=== PATIENT | female | born 1965 | race Two or more races ===

== ENCOUNTER 2024-11-09 06:07 | Inpatient (IN) | payer MEDICAID ==
[~2024-11-09] VITALS: Ht 157.5 cm; Wt 87.0 kg
[~2024-11-09 06:07] MED LIST: GLIP5TAB21 PO; INSUINJ37 SC; LISI20TA56 PO; OMEP20TA PO; SEMA2INJ3 SC; SIMV20TA20 PO
[2024-11-09] MEDS: ACETAMINOPHEN IV 100 ML IV ONE (06:33)
[2024-11-09] MEDS: ceFAZolin 2 GM/D5W50ml 50 ML IV ONE (06:33)
[2024-11-09] MEDS: CELECOXIB 100 MG CAP PO ONE (07:00)
[2024-11-09] MEDS: PREGABALIN CAPSULE 75 MG CAP PO ONE (07:00)
[2024-11-09] MEDS: ACETAMINOPHEN IV 1000 MG/100ML (10MG/ML) IV ONE (07:00)
[2024-11-09] MEDS: BUPIVACAINE HCL 50 ML ONE (07:13)
[2024-11-09] MEDS ORDERED: fentaNYL CITRATE 100 MCG/2 ML VL ONE (07:13)
[2024-11-09] MEDS: CEFEPIME 1GM/ 50ML 50 ML IV ONE (07:13)
[2024-11-09] MEDS ORDERED: MIDAZOLAM HCL 2MG/2ML 2ml VIAL (1mg/ml) ONE (07:13)
[2024-11-09] MEDS: TRANEXAMIC ACID 20 ML ONE (07:16)
[2024-11-09] MEDS ORDERED: PROPOFOL 10 MG/ML 20 ML IV ONE (07:28)
[2024-11-09] MEDS ORDERED: ONDANSETRON HCL 4 MG/2 ML VIAL ONE (07:29)
[2024-11-09] MEDS ORDERED: LIDOCAINE 1% INJ PF 5ML AMP ONE (07:29)
[2024-11-09] MEDS ORDERED: DEXTROSE (50%) 50ML SYRG IV PRN (07:30)
[2024-11-09] MEDS ORDERED: ONDANSETRON HCL 4 MG/2 ML VIAL IV PRN (07:30)
[2024-11-09] MEDS ORDERED: MORPHINE SULFATE INJ 2 MG/ml SYRG IV PRN (07:30)
[2024-11-09] MEDS: LACTATED RINGER'S 1,000 ML IV SCH (07:30)
[2024-11-09] MEDS: ceFAZolin 1GM/50ML 50 ML IV SCH (07:30)
[2024-11-09] MEDS ORDERED: NITROGLYCERIN 0.4 MG SL TAB SL PRN (07:30)
[2024-11-09] MEDS ORDERED: METOCLOPRAMIDE HCL 5MG/ml INJ 2ml VIAL ONE (07:46)
[2024-11-09] MEDS ORDERED: MORPHINE SULF PF 5 MG/10 ML VIAL ONE (07:48)
[2024-11-09] MEDS ORDERED: LIDOCAINE W/ EPINEPHRINE 1% 20ML VIAL ONE (07:52)
[2024-11-09] MEDS: KETOROLAC TROMETH 30 MG/ML 1ML VIAL ONE (08:14)
[2024-11-09] MEDS: BUPIVACAINE 0.25% INJ 50ML VIAL ONE (08:14)
[2024-11-09] MEDS: VANCOMYCIN HCL 1000 MG VL ONE (08:16)
--- NOTE | 2024-11-09 09:24 | DVHOP2 ---
Discharge Orders Discharge Orders DISCHARGE WHEN CRITERIA MET DISCHARGE WHEN CRITERIA MET. Operative Rep- Outpatient Operative Report PRE-OP DIAGNOSIS: Left knee osteoarthritis POST-OP DIAGNOSIS: Same [place] protocol followed: Yes ESTIMATED BLOOD LOSS: 25 cc PROCEDURE: Left total knee arthroplasty Computer navigation left total knee arthroplasty SURGEON/ELECTRIC DETECTOR OPERATOR: Tarun WEAVER ANESTHESIA: Ruel CAMPBELL ANESTHESIOLOGIST: SHANNAN INFORMED CONSENT: Informed Consent: Discussed all inherent risks, complications, and alternatives treatments with the patient. Patient has agreed to proceed with the procedure. I have reviewed all pre-operative assessments including Labs, EKGs, and radiographic images that has been performed. Patient is an appropriate candidate for the outpatient surgical center procedure. The patient was educated on the risks and benefits of surgical and nonsurgical treatment of the left lower extremity she does understand that she has medial sided osteoarthritis with a kl 3 Kale for changes along with I see RS scale 3 Collins 4 changes on the medial femoral condyle the patient understands the risks associated with having a total knee arthroplasty of the left lower extremity she the patient is educated on the risks of the [facility] total knee arthroplasty of the based on these parameters the patient was educated on the risks and benefits of surgical and nonsurgical treatment of the left lower extremity and opted for surgical treatment of the left lower extremity The patient is seen in the preoperative holding area of the left lower extremity was marked the patient was brought to operative suite general anesthesia was then induced and also to hospital protocol left lower extremity was prepped and draped in the standard fashion Ancef was given for infection prophylaxis TXA was given for bleeding prophylaxis left lower extremity was then prepped and draped in the standard fashion The patient is seen in the preoperative holding of the left lower extremity was marked of Ancef was given for infection prophylaxis once I was under then incision made through skin subcu tissue muscle fascia down to the VMO quad junction and medial parapatellar arthrotomy was then completed the fat pad was created off the anterior aspect of the patella once I was then done the ACL PCL and anterior horn of the medial and lateral meniscus were transected the tibial proximal tibia was then exposed once it was exposed the appropriate manner computer navigation was then brought onto the field with a 2 degree slope to make up for the CR femoral component to closed down the flexion gap in the appropriate manner of the proximal tibia cut was then completed once it was then completed the distal femur cardiac completed with 3 of flexion with a neutral, hematocrit mechanical axis computer navigation with flexion extension internal and external rotation of the femur once I was then completed the tip of the femoral sizing block was noted. The size 7 5 sizing block formalin cutting block was then noted once I was then noted the medial and lateral meniscus were carefully removed along with the ACL and PCL once I was then transected and 10 mm spacer block was noted to be balanced in flexion and extension slightly tight on the medial side therefore the pancreas of the MCL was then completed in the appropriate manner once it was then done on the the size tibial placed presents punched and kicked along the medial 1/3 tibial tubercle was 10 mm MC poly along with a size 7 narrow femoral component was punched and cable patellar nephrectomy was completed once I was then completed the knees irrigated customized saline and then sized the femoral component tibial base plate a cemented and punched in the placed along with a size 7 narrow component followed by 10 mm MC poly on closed in extension with the irrigation with the vancomycin powder followed by suture followed by 0 Vicryl followed by 2-0 Vicryl followed by erika followed by Prineo followed by an on the Mepilex dressing. The patient will be weight-bearing as tolerated on the left lower extremity PT OT out of bed daily follow up in 2 weeks' time. TARUN MALONE MD Nov 09, 2024 09:24
[2024-11-09] MEDS: ACCU-CHEK COMFORT CURVE STRIP VI SCH (09:28)
[2024-11-09] MEDS ORDERED: hydrALAZINE HCL 20 MG/ML VL IV PRN (09:30)
[2024-11-09] MEDS: METOCLOPRAMIDE HCL 5MG/ml INJ 2ml VIAL IV ONE (09:30)
[2024-11-09] MEDS: ONDANSETRON HCL 4 MG/2 ML VIAL IV ONE (09:30)
[2024-11-09] MEDS: KETOROLAC TROMETH 30 MG/ML 1ML VIAL IV ONE (09:30)
[2024-11-09] MEDS ORDERED: HYDROmorphone HCL 2 MG/ML VL/or syr IV PRN (09:30)
[2024-11-09] MEDS ORDERED: PATIENTS OWN MEDICATION (Omeprazole (Gnp Omeprazole) 20 MG) PO SCH (10:00)
[2024-11-09] MEDS: CEFEPIME 1GM/ 50ML 50 ML IV SCH (10:00)
[2024-11-09] MEDS: PANTOPRAZOLE 40 MG TAB PO SCH (10:00)
--- NOTE | 2024-11-09 10:05 | DVH ---
CLINICAL INDICATION: Pain; S/P SURGERY TECHNIQUE: 1 radiographic views of the left knee were obtained. Comparison: None FINDINGS/IMPRESSION: Postsurgical changes from left knee arthroplasty.
[2024-11-09] MEDS: InsuLIN REG 1unit/0.01ml Soln (100units/ml) SC SCH ×2 (11:30→21:25)
--- NOTE | 2024-11-09 14:22 | DVHHP2 ---
Review of Systems Allergies: Coded Allergies: NO KNOWN ALLERGIES (Unverified , 11/06/24) Medications Current Medications Medications Dose Ordered Sig/Chema Route Start Time Stop Time Status Last Admin Dose Admin Lisinopril 10 mg QPM PO 11/09/24 18:00 Patient Own Medication 20 mg DAILY PO 11/09/24 10:00 UNV Patient Own Medication 20 mg QPM PO 11/09/24 18:00 UNV Lactated Ringer's 1,000 ml @ 100 mls/hr Q10H IV 11/09/24 07:30 Sodium Chloride 10 ml Q8HR IV 11/09/24 14:00 Cefazolin Sodium 50 ml @ 50 mls/hr Q6H IV 11/09/24 07:30 11/09/24 20:29 11/09/24 13:03 50 MLS/HR Acetaminophen/ Hydrocodone Bitart 1 tab Q4HP PRN PO 11/09/24 07:30 Hydromorphone HCl 1 mg Q2HP PRN IV 11/09/24 07:30 Oxycodone HCl 10 mg Q12HR PO 11/09/24 10:00 Ondansetron HCl 4 mg Q6HP PRN IV 11/09/24 07:30 Docusate Sodium 100 mg Q12HR PO 11/09/24 10:00 Nitroglycerin 0.4 mg Q5MINP PRN SL 11/09/24 07:30 Morphine Sulfate 2 mg Q30M PRN IV 11/09/24 07:30 Diagnostic Test (Pha) 1 strip ACHS 11/09/24 11:30 11/09/24 09:28 1 STRIP Insulin Human Regular HS SC 11/09/24 22:00 Insulin Human Regular AC SC 11/09/24 11:30 Dextrose 50 ml UD PRN IV 11/09/24 07:30 Cefepime HCl 50 ml @ 12.5 mls/hr DAILY IV 11/09/24 10:00 Aspirin 81 mg BID PO 11/10/24 10:00 Atorvastatin Calcium 10 mg HS PO 11/09/24 22:00 Pantoprazole Sodium 40 mg DAILY PO 11/09/24 10:00 Exam Vital Signs Vital Signs Date Time Temp Pulse Resp B/P (MAP) Pulse Ox O2 Delivery O2 Flow Rate FiO2 11/09/24 11:25 Room Air 11/09/24 11:20 65 14 133/76 (95) 98 11/09/24 09:30 2.0 11/09/24 09:23 98.1 98.1 Labs/Xrays Labs Test 11/09/24 09:28 Range/Units POC Glucose 113 H 70-106 mg/dl Assessment/Plan Assessment/Plan see dictated note Plan discussed with: Patient My Orders Orders - DESHAUN SALAZAR MD Procedure Category Date Status Time Complete Blood Count LAB 11/10/24 Verified 06:00 Comprehensive LAB 11/10/24 Verified Metabolic Panel 06:00 Hemoglobin A1c LAB 11/10/24 Verified 06:00 Urinalysis LAB 11/09/24 Uncollected 14:19 Date of Service: Nov 09, 2024 Billing Provider: DESHAUN SALAZAR MD Common Visit Codes: [id number] INP/OBS CARE (HIGH) Secondary Visit Codes: [id number] CARE PLAN 30 MINUTES DESHAUN SALAZAR MD Nov 09, 2024 14:22
--- NOTE | 2024-11-09 14:35 | DVHHP ---
ADMIT DATE: 11/09/2024 HISTORY OF PRESENT ILLNESS: The patient is a 59-year-old lady who is admitted after she underwent surgery on the left knee for DJD of the knee. The patient at this time denies any significant pain. No chest pain. No shortness of breath. No nausea or vomiting. REVIEW OF SYSTEMS: Review of rest of the systems otherwise currently negative. PAST MEDICAL HISTORY: Significant for diabetes, hypertension, and hyperlipidemia. MEDICATIONS: She takes insulin, lisinopril, glipizide, Ozempic, and simvastatin. ALLERGIES: No known drug allergies. SOCIAL HISTORY: No smoking or alcohol. Lives at home with her daughter. FAMILY HISTORY: Negative. PHYSICAL EXAMINATION: GENERAL: The patient is awake and alert. VITAL SIGNS: Temperature of 98.1, pulse of 60 per minute, blood pressure 115/65. SHEENT: Unremarkable. NECK: No JVD. No pedal edema. LUNGS: Equal bilaterally. No added sounds. CARDIOVASCULAR: S1 and S2 are regular. No murmurs. ABDOMEN: Soft. There is no organomegaly. NEUROLOGIC: Nonfocal. MUSCULOSKELETAL: The left knee is currently in a dressing. ASSESSMENT AND PLAN: * Diabetes mellitus for which she will be placed on sliding scale insulin and the hemoglobin A1c will be checked. * Hypertension for which she will be placed on as needed hydralazine. * Obesity. * Hyperlipidemia. * Status post left knee surgery for degenerative joint disease of the knee for which she will receive physical therapy and pain medications. * Advanced care planning: The patient is a full code-Time spent was 18 minutes. MD KALLI Patel/EKT TID: [id number] RECEIPT: [id number] [facility]
[2024-11-09] MEDS: HYDROcodone-ACET 5/325MG TAB PO PRN (15:08)
[2024-11-09 15:56] VITALS: RESP 18; O2SAT 95
[2024-11-09] MEDS: SODIUM CHLOR 0.9% PF (SALINE LOCK) 10ML VIAL/SYR IV SCH (16:12)
[2024-11-09] MEDS: DOCUSATE SOD 100 MG CAP PO SCH (16:13)
[2024-11-09 17:00] VITALS: BP 147/78; PULSE 65; RESP 18; TEMP 97.5; O2SAT 96
[2024-11-09] MEDS: HYDROmorphone HCL 2 MG/ML VL/or syr IV PRN (17:24)
[2024-11-09] MEDS ORDERED: PATIENTS OWN MEDICATION (Simvastatin 20 MG) PO SCH (18:00)
[2024-11-09] MEDS ORDERED: LISINOPRIL 20 MG TAB PO SCH (18:00)
[2024-11-09 19:38] LABS: Urine Protein, UAD Negative (Negative)
[2024-11-09 20:00] VITALS: PULSE 87; RESP 18; O2SAT 98
[2024-11-09] MEDS: ATORVASTATIN 20 MG TAB PO SCH (20:59)
[2024-11-09 21:00] VITALS: BP 141/79; PULSE 89; RESP 20; TEMP 98.2; O2SAT 96
[2024-11-10] VITALS (7 sets, daily range): BP systolic 126–169; BP diastolic 78–92; PULSE 65–87; RESP 18–20; TEMP 97.5–98.7; O2SAT 97–98
[2024-11-10 06:36] LABS: Hematocrit 33.7 % (36.0-46.0); Hemoglobin 11.5 g/dL (12.2-16.2); Mean Corpuscular Hemoglobin 29.6 pg (28.0-32.0); Mean Corpuscular Volume 86.8 fL (80.0-100.0); Nucleated Red Blood Cells % 0.0 %
[2024-11-10 06:52] LABS: Alanine Aminotransferase 22 U/L (7-40); Albumin 4.0 g/dL (3.2-4.8); Alkaline Phosphatase 87 U/L (46-116); BUN/Creatinine Ratio 14.0 (10.0-20.0); Bilirubin, Total 0.6 mg/dL (0.2-1.0); Blood Urea Nitrogen 13 mg/dL (9-23); Calcium 9.1 mg/dL (8.7-10.4); Chloride 103 mmol/L (98-107); Potassium 4.0 mmol/L (3.5-5.1); Sodium 138 mmol/L (136-145); Total Protein 6.6 g/dL (5.7-8.2)
[2024-11-10 06:56] LABS: Glucose 353 mg/dL (74-106)
[2024-11-10 06:59] LABS: Anion Gap 12 (5-15); Carbon Dioxide 23 mmol/L (20-31)
--- NOTE | 2024-11-10 08:12 | DVHPN2 ---
Progress Note Date Seen: Nov 10, 2024 Medical Necessity Reason Pt with a Central, PICC or Fol: No Subjective Patient reports: No new complaints Objective vital signs Vital Sign Date Time Temp Pulse Resp B/P (MAP) Pulse Ox O2 Delivery O2 Flow Rate FiO2 11/10/24 05:00 98.2 87 19 126/85 (99) 97 98.2 11/09/24 20:00 Room Air* 0 21 Total Intake and Output 11/09/24 11/09/24 11/10/24 15:00 23:00 07:00 Intake Total 200 ml 1040 ml Balance 200 ml 1040 ml medications Current Medications Medications Dose Ordered Sig/Chema Route Start Time Stop Time Status Last Admin Dose Admin Patient Own Medication 20 mg DAILY PO 11/09/24 10:00 UNV Patient Own Medication 20 mg QPM PO 11/09/24 18:00 UNV Sodium Chloride 10 ml Q8HR IV 11/09/24 14:00 11/10/24 06:22 10 ML Acetaminophen/ Hydrocodone Bitart 1 tab Q4HP PRN PO 11/09/24 07:30 11/09/24 15:08 1 TAB Hydromorphone HCl 1 mg Q2HP PRN IV 11/09/24 07:30 11/10/24 01:31 1 MG Oxycodone HCl 10 mg Q12HR PO 11/09/24 10:00 11/09/24 20:59 10 MG Ondansetron HCl 4 mg Q6HP PRN IV 11/09/24 07:30 Docusate Sodium 100 mg Q12HR PO 11/09/24 10:00 11/09/24 20:58 100 MG Nitroglycerin 0.4 mg Q5MINP PRN SL 11/09/24 07:30 Morphine Sulfate 2 mg Q30M PRN IV 11/09/24 07:30 Diagnostic Test (Pha) 1 strip ACHS 11/09/24 11:30 11/10/24 06:25 1 STRIP Insulin Human Regular HS SC 11/09/24 22:00 11/09/24 21:25 8 UNITS Insulin Human Regular AC SC 11/09/24 11:30 11/10/24 06:23 15 UNITS Dextrose 50 ml UD PRN IV 11/09/24 07:30 Cefepime HCl 50 ml @ 12.5 mls/hr DAILY IV 11/09/24 10:00 Aspirin 81 mg BID PO 11/10/24 10:00 Atorvastatin Calcium 10 mg HS PO 11/09/24 22:00 11/09/24 20:59 10 MG Pantoprazole Sodium 40 mg DAILY PO 11/09/24 10:00 Hydralazine HCl 10 mg Q6HP PRN IV 11/09/24 14:30 Examination: GENERAL:Normal, MSK:Abnormal laboratory and microbiology Laboratory Tests 11/10/24 04:49 Test 11/10/24 04:49 Range/Units Serum Glucose 353 H 74-106 mg/dL Problem List/Assessment/Plan Problem List/Assessment/Plan 59 year old female who is s/p Left TKA POD 1 1. pain control 2. WBAT 3. physical therapy 4. CPM as ordered 5. DVT ppx 6. d/c planning for home tomorrow Plan discussed with: Patient Date of Service: Nov 10, 2024 Billing Provider: MARJAN HERNANDES MD Common Visit Codes: NOT BILLABLE NAHED VICENTE NP Nov 10, 2024 08:12
--- NOTE | 2024-11-10 12:30 | DVHPN2 ---
Progress Note Date Seen: Nov 10, 2024 Medical Necessity Reason Pt with a Central, PICC or Fol: No Subjective Patient reports: No new complaints Review of Systems: HEENT:Normal, CVS:Normal, RESPIRATORY:Normal, GI:Normal, :Normal, MSK:Normal, NEURO:Normal Objective vital signs Vital Sign Date Time Temp Pulse Resp B/P (MAP) Pulse Ox O2 Delivery O2 Flow Rate FiO2 11/10/24 09:00 97.5 83 18 144/78 (100) 98 97.5 11/10/24 08:00 Room Air* 0 21 Total Intake and Output 11/09/24 11/09/24 11/10/24 15:00 23:00 07:00 Intake Total 200 ml 1040 ml Balance 200 ml 1040 ml medications Current Medications Medications Dose Ordered Sig/Chema Route Start Time Stop Time Status Last Admin Dose Admin Patient Own Medication 20 mg DAILY PO 11/09/24 10:00 UNV Patient Own Medication 20 mg QPM PO 11/09/24 18:00 UNV Sodium Chloride 10 ml Q8HR IV 11/09/24 14:00 11/10/24 06:22 10 ML Acetaminophen/ Hydrocodone Bitart 1 tab Q4HP PRN PO 11/09/24 07:30 11/09/24 15:08 1 TAB Hydromorphone HCl 1 mg Q2HP PRN IV 11/09/24 07:30 11/10/24 01:31 1 MG Oxycodone HCl 10 mg Q12HR PO 11/09/24 10:00 11/10/24 10:25 10 MG Ondansetron HCl 4 mg Q6HP PRN IV 11/09/24 07:30 Docusate Sodium 100 mg Q12HR PO 11/09/24 10:00 11/10/24 10:25 100 MG Nitroglycerin 0.4 mg Q5MINP PRN SL 11/09/24 07:30 Morphine Sulfate 2 mg Q30M PRN IV 11/09/24 07:30 Diagnostic Test (Pha) 1 strip ACHS 11/09/24 11:30 11/10/24 11:44 1 STRIP Insulin Human Regular HS SC 11/09/24 22:00 11/09/24 21:25 8 UNITS Insulin Human Regular AC SC 11/09/24 11:30 11/10/24 12:07 9 UNITS Dextrose 50 ml UD PRN IV 11/09/24 07:30 Cefepime HCl 50 ml @ 12.5 mls/hr DAILY IV 11/09/24 10:00 11/10/24 10:23 12.5 MLS/HR Aspirin 81 mg BID PO 11/10/24 10:00 11/10/24 10:25 81 MG Atorvastatin Calcium 10 mg HS PO 11/09/24 22:00 11/09/24 20:59 10 MG Pantoprazole Sodium 40 mg DAILY PO 11/09/24 10:00 11/10/24 10:25 40 MG Hydralazine HCl 10 mg Q6HP PRN IV 11/09/24 14:30 Examination: GENERAL:Normal, HEENT:Normal, NECK:Normal, LUNGS:Normal, CVS:Normal, ABDOMEN:Normal, MSK:Normal, SKIN:Normal, NEURO:Normal, :Normal laboratory and microbiology Laboratory Tests 11/10/24 04:49 Test 11/10/24 04:49 Range/Units Serum Glucose 353 H 74-106 mg/dL Problem List/Assessment/Plan Problem List/Assessment/Plan * Diabetes mellitus for which she will be placed on sliding scale insulin, lantus insulin and the hemoglobin A1c will be checked. * Hypertension for which she will be placed on as needed hydralazin, lisinopril * Obesity. * Hyperlipidemia. * Status post left knee surgery for degenerative joint disease of the knee for which she will receive physical therapy and pain medications. * Advanced care planning: The patient is a full code-Time spent was 18 minutes. Plan discussed with: Patient My Orders My Orders Orders - DESHAUN SALAZAR MD Procedure Category Date Status Time Hydralazine Injection PHA 11/09/24 In Process (Apresoline Inject 14:30 Hepatitis B Surface LAB 11/09/24 In Process Antigen 16:59 Hepatitis C Antibody LAB 11/09/24 In Process 16:59 Date of Service: Nov 10, 2024 Billing Provider: DESHAUN SALAZAR MD Common Visit Codes: [id number] INP/OBS CARE(HIGH) Secondary Visit Codes: [id number] CARE PLAN 30 MINUTES DESHAUN SALAZAR MD Nov 10, 2024 12:30
[2024-11-10] MEDS: INSULIN LANTUS (GLARGINE) 1 /0.01ml (100units/ml) SC ONE (15:20)
[2024-11-10] MEDS: LISINOPRIL 5 MG TAB PO ONE (15:20)
[2024-11-10] MEDS: hydrALAZINE HCL 20 MG/ML VL IV PRN (18:39)
[2024-11-10] MEDS: INSULIN LANTUS (GLARGINE) 1 /0.01ml (100units/ml) SC SCH (21:54)
[2024-11-11 05:00] VITALS: BP 160/100; PULSE 83; RESP 18; TEMP 98.5; O2SAT 97
[2024-11-11 06:34] LABS: Hematocrit 33.8 % (36.0-46.0); Hemoglobin 11.4 g/dL (12.2-16.2)
--- NOTE | 2024-11-11 07:26 | DVHPN2 ---
Progress Note Date Seen: Nov 11, 2024 Medical Necessity Reason Pt with a Central, PICC or Fol: No Subjective Patient reports: No new complaints Objective vital signs Vital Sign Date Time Temp Pulse Resp B/P (MAP) Pulse Ox O2 Delivery O2 Flow Rate FiO2 11/11/24 05:00 98.5 83 18 160/100 (120) 97 98.5 11/10/24 20:00 Room Air* 0 21 Total Intake and Output 11/10/24 11/10/24 11/11/24 15:00 23:00 07:00 Intake Total 50 ml 1500 ml 650 ml Output Total 775 ml Balance 50 ml 1500 ml -125 ml medications Current Medications Medications Dose Ordered Sig/Chema Route Start Time Stop Time Status Last Admin Dose Admin Patient Own Medication 20 mg DAILY PO 11/09/24 10:00 UNV Patient Own Medication 20 mg QPM PO 11/09/24 18:00 UNV Sodium Chloride 10 ml Q8HR IV 11/09/24 14:00 11/11/24 06:09 10 ML Acetaminophen/ Hydrocodone Bitart 1 tab Q4HP PRN PO 11/09/24 07:30 11/09/24 15:08 1 TAB Hydromorphone HCl 1 mg Q2HP PRN IV 11/09/24 07:30 11/11/24 01:07 1 MG Oxycodone HCl 10 mg Q12HR PO 11/09/24 10:00 11/10/24 21:45 10 MG Ondansetron HCl 4 mg Q6HP PRN IV 11/09/24 07:30 Docusate Sodium 100 mg Q12HR PO 11/09/24 10:00 11/10/24 21:57 100 MG Nitroglycerin 0.4 mg Q5MINP PRN SL 11/09/24 07:30 Morphine Sulfate 2 mg Q30M PRN IV 11/09/24 07:30 Diagnostic Test (Pha) 1 strip ACHS 11/09/24 11:30 11/11/24 06:10 1 STRIP Insulin Human Regular HS SC 11/09/24 22:00 11/10/24 21:50 4 UNITS Insulin Human Regular AC SC 11/09/24 11:30 11/11/24 06:10 2 UNITS Dextrose 50 ml UD PRN IV 11/09/24 07:30 Cefepime HCl 50 ml @ 12.5 mls/hr DAILY IV 11/09/24 10:00 11/10/24 10:23 12.5 MLS/HR Aspirin 81 mg BID PO 11/10/24 10:00 11/10/24 21:45 81 MG Atorvastatin Calcium 10 mg HS PO 11/09/24 22:00 11/10/24 21:44 10 MG Pantoprazole Sodium 40 mg DAILY PO 11/09/24 10:00 11/10/24 10:25 40 MG Hydralazine HCl 10 mg Q6HP PRN IV 11/09/24 14:30 11/10/24 18:39 10 MG Insulin Glargine 20 units HS SC 11/10/24 22:00 11/10/24 21:54 20 UNITS Lisinopril 10 mg DAILY PO 11/11/24 10:00 Examination: GENERAL:Normal, MSK:Abnormal laboratory and microbiology Laboratory Tests 11/11/24 04:42 11/10/24 04:49 Test 11/10/24 04:49 Range/Units Serum Glucose 353 H 74-106 mg/dL Problem List/Assessment/Plan Problem List/Assessment/Plan 59 year old female who is s/p Left TKA POD 2 1. pain control 2. WBAT 3. physical therapy 4. CPM as ordered 5. DVT ppx 6. aquacel to remain in place for 2 weeks, discussed shower recommendations with patient 7. follow up in 2 weeks on 11/25/2024 at 9:30, patient given appointment reminder card at bedside this morning 8. prescriptions for percocet, colace, aspirin and keflex sent electronically to [facility] on 11/04/2024 9. Patient is clear for discharge home with the following recommendations: Total Knee Arthroplasty Discharge Instructions Wound Care 1. You will likely have a gel-type dressing over your wound, you may keep this on for 7-14 days after leaving the hospital until your first post-op visit, unless it becomes soiled or your skin becomes irritated. If a wound vac dressing is placed on your knee this is to be left in place for one week and will be changed as needed. After your remove the dressing or wound vac, the home health nurse may place clean dry dressing over your wound. Keep wound covered, clean and dry for two weeks. 2. Sergei will be removed during your initial post-op visit. If you have concerns about our wound, please call the office immediately. If nervous about staple removal can take pain pill one hour prior to appointment. 3. If there is drainage from your wound, change the dressing daily until it stops. If drainage lasts more than 10 days, call our office. 4. Low grade (up to 100 degrees) fever is common for the first week after surgery. You should take your temperature daily. If you have fevers of 101 or more, please call the office. Medication Management 1. You will be discharged with pain medication, a blood thinner (unless you were previously on a blood thinner prior to surgery) and stool softener. Please follow the instructions regarding these medications as provided by your nurse at the hospital upon discharge. 2. Blood clots in the leg are a known complication of surgery. It is very important that you take the medication to protect against clots. Depending on what you are discharged on typically it is Lovenox 40mg daily for 2 weeks or Aspirin 81mg twice daily for 4 weeks. After you finish this, you should then take baby Aspirin (81mg) once daily for 2 weeks. 3. You should restart all of your prescription medications once discharged from the hospital/surgery center unless specifically instructed otherwise. 4. Herbal supplements may be restarted 2 weeks after surgery. 5. If you have been given Coumadin as a blood thinner, please follow up with your family protection specialist during the first two weeks after surgery to review medications and overall medical well-being. 6. Please note that narcotic pain medication may cause constipation. Please remember to take stool softeners (Colace) when using narcotics to help reduce the change of constipation. You should not use alcohol together with narcotic medication. Activity [facility] Instructions 1. Driving is not permitted within the first 2 weeks. 2. Your first postoperative visit will take place 2 weeks after discharge. Please call the office once you are home from the hospital to arrange this appointment. 3. Antibiotic preventative treatment is required before dental or other invasive procedures. Please ask your surgeon about this at your first postoperative visit. If you experience chest pain, shortness of breath or severe painful calf swelling, go to the nearest emergency room to be evaluated. Please call our office once your situation is stabilized. Plan discussed with: Patient Date of Service: Nov 11, 2024 Billing Provider: MARJAN HERNANDES MD Common Visit Codes: NOT BILLABLE NAHED VICENTE NP Nov 11, 2024 07:26
[2024-11-11 08:30] VITALS: BP 141/83; PULSE 87; RESP 18; TEMP 98.1; O2SAT 98
[2024-11-11 10:04] LABS: Hepatitis B Surface Antigen Negative (Negative)
[2024-11-11 10:23] LABS: Hepatitis C Antibody Negative (Negative)
[2024-11-11] MEDS: LISINOPRIL 5 MG TAB PO SCH (10:37)
--- NOTE | 2024-11-11 11:43 | DVHDS2 ---
Discharge Summary Date of Admission Nov 09, 2024 at 07:16 Date of Discharge: Nov 11, 2024 Labs/Diagnostic Data: Laboratory Results Test 11/11/24 11:00 11/11/24 04:42 11/10/24 04:49 11/09/24 19:13 POC Glucose 143 mg/dl (70-106) Hemoglobin 11.4 g/dL (12.2-16.2) Hematocrit 33.8 % (36.0-46.0) White Blood Count 7.3 10^3/uL (4.4-10.8) Red Blood Count 3.89 10^6/uL (4.0-5.20) Mean Corpuscular Volume 86.8 fL (80.0-100.0) Mean Corpuscular Hemoglobin 29.6 pg (28.0-32.0) Mean Corpuscular Hemoglobin Concent 34.1 g/dL (32.0-36.0) Red Cell Distribution Width 13.6 % (11.8-14.3) Platelet Count 240 10^3/uL (140-450) Mean Platelet Volume 7.7 fL (6.9-10.8) Neutrophils (%) (Auto) 80.1 % (37.0-80.0) Lymphocytes (%) (Auto) 10.7 % (10.0-50.0) Monocytes (%) (Auto) 9.0 % (0.0-12.0) Eosinophils (%) (Auto) 0.0 % (0.0-7.0) Basophils (%) (Auto) 0.2 % (0.0-2.0) Neutrophils # (Auto) 5.8 10 ^3/uL (1.6-8.6) Lymphocytes # (Auto) 0.8 10 ^3/uL (0.4-5.4) Monocytes # (Auto) 0.7 10 ^3/uL (0-1.3) Eosinophils # (Auto) 0 10 ^3/uL (0-0.8) Basophils # (Auto) 0 10 ^3/uL (0-0.2) Nucleated Red Blood Cells 0.0 % Sodium Level 138 mmol/L (136-145) Potassium Level 4.0 mmol/L (3.5-5.1) Chloride Level 103 mmol/L (98-107) Carbon Dioxide Level 23 mmol/L (20-31) Anion Gap 12 (5-15) Blood Urea Nitrogen 13 mg/dL (9-23) Creatinine 0.93 mg/dL (0.550-1.02) Glomerular Filtration Rate Calc 70 mL/min (>90) BUN/Creatinine Ratio 14.0 (10.0-20.0) Serum Glucose 353 mg/dL (74-106) Hemoglobin A1c 7.2 % A1C (<5.7) Calcium Level 9.1 mg/dL (8.7-10.4) Total Bilirubin 0.6 mg/dL (0.2-1.0) Aspartate Amino Transferase (AST) 18 U/L (13-40) Alanine Aminotransferase (ALT) 22 U/L (7-40) Alkaline Phosphatase 87 U/L (46-116) Total Protein 6.6 g/dL (5.7-8.2) Albumin 4.0 g/dL (3.2-4.8) Hepatitis B Surface Antigen Negative (Negative) Hepatitis C Antibody Negative (Negative) Test 11/09/24 18:53 Urine Color Light-yellow (Yellow) Urine Clarity Clear (Clear) Urine pH 5.5 (5.0-9.0) Urine Specific Coker 1.025 (1.001-1.035) Urine Protein Negative (Negative) Urine Ketones Trace (Negative) Urine Blood Negative /uL (Negative) Urine Nitrite Negative (Negative) Urine Bilirubin Negative (Negative) Urine Urobilinogen Normal mg/dL (Negative) Urine Leukocyte Esterase Negative /uL (Negative) Urine RBC 1 /hpf (0 - 4) Urine Microscopic WBC < 1 /HPF (0-5) Urine Squamous Epithelial Cells Few /hpf (<5) Urine Bacteria None seen /hpf (None Seen) Urine Glucose 4+ mg/dL (Normal) Other Laboratory Tests 11/11/24 04:42 11/10/24 04:49 Brief Hx & Hospital Course: SEE DICTATED NOTE Condition at Discharge: Fair Final Diagnosis/Problems List KNEE SURGERY Discharge Disposition: Home Discharge Instruct/Medications Diet: Consistent carbohydrate, Cardiac 2g Na,low cholest Activity: No Restrictions, As Tolerated Follow Up/Referral: FU WITH PCP/ORTHO Medications: RESUME HOME MEDS REST MEDS PER ORTHO Scheduled Lisinopril (Lisinopril), 10 MG PO QPM, (Reported) Omeprazole (Gnp Omeprazole), 20 MG PO DAILY, (Reported) Semaglutide (Ozempic), 1 MG SC QWEEKLY, (Reported) Simvastatin (Simvastatin), 20 MG PO QPM, (Reported) Miscellaneous Medications Glipizide (Glipizide), 5 MG PO, (Reported) Insulin Glargine (Lantus Solostar), 100 UNIT SC, (Reported) Discharge Statement: "Patient was advised to return to the ER or call 911 if any headaches, dizziness, shortness of breath, chest pain, abdominal pain, bleeding, fevers, or worsening of medical condition. Patient was counseled about treatment plan, medications, possible side effects, patientverbalized understanding. All questions were answered to the best of my ability. This discharge took greater then 30 minutes in planning, reviewing documentation, counseling the patient, and discussing with other team members." ASSESSMENT ASSESSMENT Assessment KNEE SURGERY Date of Service: Nov 11, 2024 Billing Provider: DESHAUN SALAZAR MD Common Visit Codes: [id number] DISCH DAY >30min DESHAUN SALAZAR MD Nov 11, 2024 11:43
[2024-11-11 12:30] VITALS: BP 154/99; PULSE 84; RESP 16; TEMP 97.8; O2SAT 96
--- NOTE | 2024-11-11 13:39 | DVHDS ---
DATE OF DISCHARGE: 11/11/2024 The patient is a 59-year-old lady, who was admitted after she underwent surgery on the left knee for DJD of the knee. She has history of diabetes, hypertension, hyperlipidemia. HOSPITAL COURSE: The patient did well postoperatively. The patient has been ambulating with physical therapy. Her hemoglobin A1c was . The patient will now be discharged home to resume her home medications and will be on medications as per Orthopedics. She will follow up with the primary and Orthopedics. She will also have home health for physical therapy. FINAL DIAGNOSES: * Diabetes mellitus. * Hypertension. * Obesity. * Hyperlipidemia. * Status post left knee surgery for DJD of the knee. Time spent in discharge planning and review of plan with the patient and nursing was 37 minutes. MD KALLI Patel/MANUELA/CIARA TID: [id number] RECEIPT: [id number]
== END 2024-11-11 16:40 | disposition home or self-care (01) | DRG 326 ==
LOC: SUR 06:07 → OVERFLOW 07:16 → WEST WING 15:43
PROVIDERS: ADMIT Internal Medicine; ATTEND Internal Medicine
PROC: 8E0YXBZ Computer Assisted Procedure of Lower Extremity (ICD-10-PCS; 2024-11-09)
PROC: 0SRD0J9 Replacement of Left Knee Joint with Synthetic Substitute, Cemented, Open Approach (ICD-10-PCS; principal; 2024-11-09 07:14)
DX: M17.12 Unilateral primary osteoarthritis, left knee (principal); E11.65 Type 2 diabetes mellitus with hyperglycemia; I10 Essential (primary) hypertension; E66.9 Obesity, unspecified; E78.5 Hyperlipidemia, unspecified; Z68.35 Body mass index [BMI] 35.0-35.9, adult; Z79.899 Other long term (current) drug therapy
CPT/HCPCS: 36415; 73562; 80053; 81001; 82962; 83036; 85014; 85018; 85025; 86803; 86850; 86900; 86901; 87340; 97116; 97163; 97530; G0378; J0131; J1100; J1815; J1885; J2250; J2405; J2704; J3490